=== PATIENT | female | born 1990 | race African-American/Black ===

== ENCOUNTER 2021-06-11 08:50 | Emergency (ER) | payer SELFPAY ==
[~2021-06-11] VITALS: Ht 170.2 cm; Wt 63.5 kg
[2021-06-11 08:56] VITALS: BP 153/70
--- NOTE | 2021-06-11 08:56 | NUR ---
SENT TO ER BED 3. BIBS C/O ON & OFF SOB X 2 WEEKS. OXYGEN SATURATION 98%, BREATHING IS EVEN AND UNLABORED.
[2021-06-11] MEDS ORDERED: ALBUTEROL FS 2.5 MG/3 ML VIAL.NEB NEB ONE (09:30)
[2021-06-11] MEDS ORDERED: ALBUTEROL FS 2.5 MG/3 ML VIAL.NEB ONE (09:37)
--- NOTE | 2021-06-11 09:43 | NUR ---
RT AT BEDSIDE
[2021-06-11] MEDS ORDERED: PRED50TA PO (10:12)
[2021-06-11] MEDS ORDERED: CETI-90 PO (10:12)
[2021-06-11] MEDS ORDERED: ALBU8.5H8 INH (10:12)
--- NOTE | 2021-06-11 10:20 | NUR ---
Patient discharged to home in stable condition. Written and verbal after care instructions given. Patient verbalizes understanding of instruction.
== END 2021-06-11 10:20 | disposition home or self-care (01) ==
LOC: ER 08:56
DX: R06.2 Wheezing (principal); F17.200 Nicotine dependence, unspecified, uncomplicated; Z60.2 Problems related to living alone; Z79.899 Other long term (current) drug therapy
CPT/HCPCS: 94799-TC